=== PATIENT | female | born 1950 | race Caucasian/White ===

== ENCOUNTER 2017-02-06 22:19 | Emergency (ER) | payer OTHER ==
[~2017-02-06] VITALS: Ht 162.6 cm; Wt 120.2 kg
[~2017-02-06 22:19] MED LIST: AMLO5TAB2 PO
--- NOTE | 2017-02-06 22:30 | NUR ---
TO BED 6 A 66 YO FEMALE BIBSELF, C/O LEFT LEG SWELLING SINCE AM. December HAD HYSTERECTOMY FOR HX OF UTERINE CANCER. CALLED PMD AND WAS ADVISED TO "GO TO ER TO SEE IF THERE'S BLOOD CLOT." DISTAL CMS IS INTACT. VSS. DENIES PAIN/DISCOMFORT. GOWNED. AWAITING FOR ER MD HODGES.
--- NOTE | 2017-02-06 23:38 | NUR ---
DR PARNELL AT BEDSIDE.
--- NOTE | 2017-02-06 23:43 | NUR ---
LISA WATTS AT BEDSIDE.
--- NOTE | 2017-02-07 00:19 | NUR ---
Patient discharged to home in stable condition. Written and verbal after care instructions given. Patient verbalizes understanding of instruction. Patient is ambulatory with steady gait, no further complaints.
[2017-02-07 00:22] VITALS: BP 148/61
== END 2017-02-07 00:22 | disposition home or self-care (01) ==
LOC: ER 22:21
DX: I89.0 Lymphedema, not elsewhere classified (principal); R60.9 Edema, unspecified; K64.9 Unspecified hemorrhoids; M54.9 Dorsalgia, unspecified; G89.29 Other chronic pain; I10 Essential (primary) hypertension; Z85.42 Personal history of malignant neoplasm of other parts of uterus; Z90.710 Acquired absence of both cervix and uterus
CPT/HCPCS: 93971-TC; A4606; Z7610

== ENCOUNTER 2017-11-02 14:54 | Inpatient (IN) | payer OTHER ==
[~2017-11-02] VITALS: Ht 162.6 cm; Wt 117.9 kg
[~2017-11-02 14:54] MED LIST changes: -AMLO5TAB2 PO; +AMLO5TAB7 PO
--- NOTE | 2017-11-02 14:55 | NUR ---
[id number] FROM HOME C/O "CANT GET AROUND AT HOME NEED WHEELCHAIR", "MY ABDOMEN BLOATED HAVE ABDOMINAL CANCER". NAD NOTED, VSS, RESP EVEN AND UNLABORED, PT WAS PUT ON MONITOR, AND HOSPITAL GOWN. WAITING FOR MD HODGES
[2017-11-02 15:30] LABS: BASOPHILS % (AUTO) 0.2 % (0.0-2.0); EOSINOPHILS % (AUTO) 0.1 % (0.0-6.0); HEMATOCRIT 37 % (33-45); HEMOGLOBIN 12.1 g/dL (11.5-14.8); LYMPHOCYTES # (AUTO) 0.7 /CMM (0.8-4.8); LYMPHOCYTES % (AUTO) 4.6 % (20.0-44.0); MEAN CORPUSCULAR HGB CONC 33 g/dl (31.0-36.0); MEAN CORPUSCULAR VOLUME 82 fL (82-100); MONOCYTES # (AUTO) 1.3 /CMM (0.1-1.30); NEUTROPHILS # (AUTO) 12.6 /CMM (1.8-8.9); NEUTROPHILS % (AUTO) 86.1 % (43.0-81.0); PLATELET COUNT (AUTO) 794 /CMM (150-450); RDW COEFFICIENT OF VARIATION 21.7 (11.5-15.0); RED BLOOD CELL COUNT(AUTO) 4.49 MIL/uL (4.0-5.2); WHITE BLOOD COUNT (AUTO) 14.6 K/uL (4.3-11.0)
[2017-11-02 15:39] LABS: CALCIUM, SERUM 8.5 mg/dL (8.5-10.1); CREATININE 0.7 mg/dL (0.6-1.3); POTASSIUM 3.9 mmol/L (3.5-5.1)
[2017-11-02 15:43] LABS: INR 1.3 (0.85-1.15)
[2017-11-02 15:46] LABS: ALBUMIN 1.6 g/dL (3.4-5.0); BILIRUBIN,DIRECT 0.5 mg/dL (0.0-0.2); BILIRUBIN,TOTAL 0.9 mg/dL (0.2-1.0); TOTAL PROTEIN, SERUM 6.2 g/dL (6.4-8.2)
--- NOTE | 2017-11-02 15:54 | NUR ---
pt unable to give urine sample. will try again in 10mins
[2017-11-02] MEDS ORDERED: SIMV10TA6 PO (16:33)
[2017-11-02] MEDS ORDERED: HYDR-552 PO (16:33)
--- NOTE | 2017-11-02 16:36 | NUR ---
CALLED , TRANSFERRED CALL TO
[2017-11-02 18:49] VITALS: BP 116/63
--- NOTE | 2017-11-02 18:53 | NUR ---
STATOR WINDER: ADMITTING NOTE PT ADMITTED WITH DX OF ACUTE CHF. ON TELE MONITORING PACING AT SR 90BPM. NO DISTRESS NOTED. NO SOB NOTED. PAIN CONTROL NEEDED. MD SOLORIO NOTIFIED ABOUT ADMISSION. SKIN INTACT. BLE +3 ON R LEG. + 4 PITTING ON LEFT LEG. L AC #20 HL. SITE CLEAR AND PATENT. NO REDNESS OR BLEEDING NOTED. NO IV FLUIDS RUNNING. VS STABLE. BP 116/63, PULSE 63, RR 18, O2 95% ON ROOM AIR, TEMP 98.3. BED REST. USUALLY AMBULATES WITH ASSIST. ALL BELONGINGS ACCOUNTED FOR AT BEDSIDE. MONEY PLACED IN SAFE BY ER NURSE. PATIENT AWARE. RESTING COMFORTABLY IN BED. CALL LIGHT WITHIN REACH.
--- NOTE | 2017-11-02 18:58 | NUR ---
BALLING HEAD TENDER: CLOSING NOTE WILL ENDORSE TO NEXT SHIFT TO CONTINUE CARE. ADMITTED PT AT CHANGE OF SHIFT.
--- NOTE | 2017-11-02 19:26 | NUR ---
RN OPENING NOTE RECEIVED PATIENT IN BED, ALERT AND ORIENTED X 4, NOTED WITH NO SOB, BREATHING EVEN AND UNLABORED, IN NO ACUTE DISTRESS AT THIS TIME. ORIENTED PT TO ADMISSION PROCESS, ROOM, CALL LIGHT AND USE OF CALL LIGHT. ALL PATIENT'S NEEDS ATTENDED TO AT THIS TIME. PLACED BED IN LOW POSITION, LOCKED IN PLACE. WILL CONTINUE TO MONITOR PATIENT.
--- NOTE | 2017-11-02 19:46 | NUR ---
RN NOTES CALLED DR. SOLORIO FOR ADMISSION ORDERS. RELAYED ECHOCARDIOGRAM REPORT TO MD. DR. SOLORIO WITH NEW ORDERS. ALL ORDERS NOTED AND CARRIED OUT.
--- NOTE | 2017-11-02 19:47 | NUR ---
RN NOTES ORDERS FAXED TO PHARMACY.
[2017-11-02 20:00] VITALS: BP 120/73
[2017-11-02] MEDS ORDERED: ACETAMINOPHEN 325 MG TABLET PO PRN (20:00)
[2017-11-02] MEDS ORDERED: HYDROCODONE/APAP 5/325MG 1 EACH TABLET PO PRN (20:00)
[2017-11-02] MEDS ORDERED: ZOLPIDEM TARTRATE 5 MG TABLET PO PRN (20:00)
[2017-11-02] MEDS ORDERED: HYDROMORPHONE 1 MG/1 ML DISP.SYRIN IV PRN (20:00)
[2017-11-02] MEDS ORDERED: ONDANSETRON HCL/PF 4 MG/2 ML VIAL IV PRN (20:00)
--- NOTE | 2017-11-02 20:17 | NUR ---
RN NOTE PATIENT BROUGHT TO RADIOLOGY FOR CT SCAN OF ABD PELVIS WITHOUT CONTRAST. PT IN STABLE CONDITION.
--- NOTE | 2017-11-02 20:35 | NUR ---
RN NOTE PATIENT BACK IN MED SURG FLOOR FROM CT, IN STABLE CONDITION. WILL CONTINUE TO MONITOR PT.
[2017-11-02] MEDS: HYDROMORPHONE INJ 2 MG/ML DISP.SYRIN IV PRN (20:59)
--- NOTE | 2017-11-02 21:38 | NUR ---
RN NOTES RECEIVED CALL FROM DR. TAMAYO REGARDING RESULT OF PATIENT'S CT SCAN OF THE ABDOMEN AND PELVIS. RELAYED RESULT TO DR. SOLORIO WITH NO NEW ORDERS. WILL CONTINUE TO MONITOR PT.
[2017-11-02] MEDS ORDERED: SIMVASTATIN 20 MG TABLET PO SCH (22:00)
[2017-11-03] VITALS: BP 127/65
--- NOTE | 2017-11-03 00:20 | NUR ---
INSPECTOR BALANCE WHEEL MOTION ADMISSION NOTES PT BROUGHT INTO UNIT VIA GURNEY, ACCOMPANIED BY 2 ER STAFF. PT SAFELY TRANSFERRED TO BED, ALERT AND ORIENTED X 2, FORGETFUL AND NEEDS FREQUENT REMINDERS, PT IS ABLE TO VERBALIZE NEEDS, NO SOB NOTED, BREATHING EVEN AND UNLABORED, NO C/O PAIN AND IS IN NO ACUTE DISTRESS AT THIS TIME. PATIENT NOTED TO HAVE IVP ON RAC G20, PATENT AND INTACT. ORIENTED PT TO UNIT, ROOM, ADMISSION PROCESS, CALL LIGHT AND USE OF CALL LIGHT. PATIENT VERBALIZED UNDERSTANDING BUT NEEDS RE-ORIENTATION. PLACED BED IN LOW POSITION AND LOCKED IN PLACE. PLACED CALL LIGHT WITHIN EASY REACH. WILL CONTINUE TO MONITOR PT. Addendum: 11/03/17 at 0157 by KURT COWAN RN CHARTING FOR WRONG PATIENT PLEASE DISREGARD.
[2017-11-03 00:48] LABS: APPEARANCE,URINE TURBID (CLEAR); BILIRUBIN,URINE 1+ (NEGATIVE); BLOOD, URINE NEGATIVE Ery/uL (NEGATIVE); KETONES,URINE TRACE (NEGATIVE); LEUKOCYTE ESTERASE ,URINE TRACE (NEGATIVE); NITRITE, URINE POSITIVE (NEGATIVE); PH,URINE 5.5 (5.0-8.0); PROTEIN,URINE TRACE mg/dl (NEGATIVE); UGLUCOSE NEGATIVE (NEGATIVE)
[2017-11-03 00:52] LABS: COLOR,URINE DARK YELLOW (YELLOW)
--- NOTE | 2017-11-03 01:20 | NUR ---
RN NOTE ATTEMPTED TO COLLECT URINE VIA COONEY CATHETER BUT PATIENT IS REFUSING. EXPLAINED RISKS AND BENEFITS X 3 BUT PT INSISTS THAT HE DOESN'T WANT TO USE THE COONEY CATHETER, RESPECTED PATIENT'S RIGHTS. ATTEMPTED TO COLLECT VIA CLEAN CATCH BUT PATIENT WASN'T ABLE TO URINATE ENOUGH. WILL TRY AGAIN LATER. Addendum: 11/03/17 at 0157 by KURT COWAN RN CHARTING FOR WRONG PATIENT PLEASE DISREGARD.
[2017-11-03 01:23] LABS: BACTERIA,URINE Moderate /HPF (None Seen); RBC,URINE 0-2 /HPF (0-2); SQUAMOUS EPITHELIAL CELL,UR Few /HPF (None Seen)
[2017-11-03 04:00] VITALS: BP 113/59
[2017-11-03] MEDS: HYDROMORPHONE INJ 2 MG/ML DISP.SYRIN IV PRN ×2 (05:12→10:41)
[2017-11-03 06:43] LABS: CALCIUM, SERUM 7.5 mg/dL (8.5-10.1); CREATININE 0.5 mg/dL (0.6-1.3); POTASSIUM 3.8 mmol/L (3.5-5.1)
[2017-11-03 06:47] LABS: THYROID STIMULATING HORMONE 1.446 uIU/mL (0.358-3.74)
--- NOTE | 2017-11-03 06:48 | NUR ---
COOKING CASING AND DRYING SUPERVISOR CLOSING NOTE PATIENT IN BED, ASLEEP BUT EASILY AROUSABLE, ALERT AND ORIENTED X 3, NOTED PT WITH NO SOB, BREATHING EVEN AND UNLABORED, NO C/O PAIN AT THIS TIME, IN NO ACUTE DISTRESS. CONTINUES TO BE UNDER TELE MONITORING WITH SINUS RHYTHM @ 92 BPM.NOTED PATIENT WITH EPISODE OF EMESIS X 1, ANTI-EMETIC MEDICATION GIVEN ORDERED. ALL PATIENT'S NEEDS ATTENDED TO THROUGHOUT THE SHIFT. BED PLACED IN LOW POSITION AND LOCKED IN PLACE. PATIENT AWARE OF SAFETY NEEDS. CALL LIGHT WITHIN EASY REACH. RELAYED URINALYSIS PROFILE RESULT TO DR. SOLORIO. WITH NEW ORDER FOR LEVAQUIN 250 MG PO QD. ALL ORDERS NOTED AND CARRIED OUT. PATIENT INFORMED AND AGREES WITH PLAN OF CARE. WILL ENDORSE TO AM SHIFT NURSE FOR CONTINUITY OF CARE.
[2017-11-03 06:56] LABS: EOSINOPHILS % (AUTO) 0.1 % (0.0-6.0); HEMATOCRIT 30 % (33-45); LYMPHOCYTES # (AUTO) 0.8 /CMM (0.8-4.8); MEAN CORPUSCULAR HGB CONC 34 g/dl (31.0-36.0); MEAN CORPUSCULAR VOLUME 81 fL (82-100); MONOCYTES # (AUTO) 1.6 /CMM (0.1-1.30); MONOCYTES % (AUTO) 10.1 % (2.0-12.0); NEUTROPHILS # (AUTO) 13.5 /CMM (1.8-8.9); NEUTROPHILS % (AUTO) 84.8 % (43.0-81.0); PLATELET COUNT (AUTO) 597 /CMM (150-450); RDW COEFFICIENT OF VARIATION 22.7 (11.5-15.0); RED BLOOD CELL COUNT(AUTO) 3.66 MIL/uL (4.0-5.2); WHITE BLOOD COUNT (AUTO) 15.9 K/uL (4.3-11.0)
--- NOTE | 2017-11-03 07:15 | NUR ---
RN NOTES: PATIENT RESTING IN BED. NONLABORED BREATHING ON ROOM AIR. NO SIGNS OF DISTRESS. PATIENT AOX3. DENIES PAIN AT THE MOMENT. IV SITE ON LEFT AC PATENT AND INTACT. BED IN LOWEST LOCKED POSITION. CALL LIGHT WITHIN REACH. WILL CONTINUE TO MONITOR. PATIENT SINUS RHYTHM 85 ON MONITOR
[2017-11-03 08:02] VITALS: BP 104/55
[2017-11-03] MEDS ORDERED: LEVOFLOXACIN (250MG) 250 MG TABLET PO SCH (09:00)
[2017-11-03] MEDS ORDERED: AMLODIPINE BESYLATE 5 MG TABLET PO SCH (09:00)
[2017-11-03] MEDS ORDERED: LEVO750T21 PO (09:04)
--- NOTE | 2017-11-03 10:42 | NUR ---
RN NOTES: MORPHINE ADMINISTERED FOR SEVERE PAIN PER ORDERS. PATIENT REFUSED NORCO.
--- NOTE | 2017-11-03 12:15 | NUR ---
RN NOTES: RETURNED 556$ FROM SAFE TO PATIENT, COUNTED IT IN FRONT OF PATIENT , WITNESSED BY JEN Salinas RN. 20$ IN PATIENT'S WALET. CHECK OF 756.25 $ RETURNED TO PATIENT WELL
[2017-11-03 16:00] VITALS: BP 109/58
--- NOTE | 2017-11-03 19:00 | NUR ---
RN NOTES: PATIENT DISCHARGED TO [facility] PER DR TOTH ORDERS. PATIENT STABLE. IV LINE REMOVED. VS WNL. DENYING PAIN AT THE MOMENT PRIOR TO DISCHARGE. ALL BELONGINGS GIVEN TO PATIENT. GAVE REPORT TO TONYA WILLINGHAM, AT FACILITY WHO VERBALIZED ACCEPTANCE. PATIENT LEFT WITH AMBULANCE STABLE. NO SIGNS OF DISTRESS NO SIGNS OF BLEEDING NOTED DURING SHIFT. NO NAUSEA AND NO VOMITING NOTED.
== END 2017-11-03 19:00 | DRG 689 ==
LOC: ER 14:58 → TELE 17:36 → MED 11-03 08:12
PROVIDERS: ADMIT Internal Medicine; ATTEND Internal Medicine
DX: N39.0 Urinary tract infection, site not specified (principal); E43 Unspecified severe protein-calorie malnutrition; C78.6 Secondary malignant neoplasm of retroperitoneum and peritoneum; C48.2 Malignant neoplasm of peritoneum, unspecified; R18.8 Other ascites; E88.09 Other disorders of plasma-protein metabolism, not elsewhere classified; Z68.41 Body mass index [BMI] 40.0-44.9, adult; R53.1 Weakness; E78.5 Hyperlipidemia, unspecified; Z85.42 Personal history of malignant neoplasm of other parts of uterus; I10 Essential (primary) hypertension; Z90.710 Acquired absence of both cervix and uterus
CPT/HCPCS: 36415; 71045-TC; 80048-TC; 80076-TC; 81000-TC; 83690-TC; 83880; 84443-TC; 84484-TC; 85025-TC; 85730-TC; 87081-TC; 87086-TC; 93307-TC; 93970-TC; A4606; J1170; J2405; Z7610